=== PATIENT | male | born 1960 | race Caucasian/White ===

== ENCOUNTER 2018-07-10 15:03 | Emergency (ER) | payer SELFPAY ==
[2018-07-10] MEDS ORDERED: DIPH/PERTUSS(ACELL)/TETANUS VAC/PF 0.5 ML SYR (>=10YO) IM ONE (16:52)
[2018-07-10] MEDS ORDERED: IBUPROFEN 800 MG TABLET PO ONE (16:53)
[2018-07-10] MEDS ORDERED: LIDOCAINE 1% INJ-PF (10 MG/ML) 30 ML SDV INJ ONE (18:24)
--- NOTE | 2018-07-10 18:42 | ER Document Report ---
HPI - HPI Patient complains to provider of: laceration Time Seen by Provider: 07/10/18 16:52 Pain Level: 3 Context: Patient is a 57-year-old male presents the emergency department with a laceration to the pad of his left middle finger. Patient states he was using a miter saw when he accidentally slipped and cut his finger. Patient denies any other injuries. Past medical history: Depression Medications: Celexa Allergies: None Patient is unsure of his last tetanus immunization. - CONSTITUTIONAL Constitutional: DENIES: Fever, Chills Past Medical History - General Information source: Patient - Social History Smoking Status: Never Smoker Chew tobacco use (# tins/day): No Frequency of alcohol use: None Drug Abuse: None Family History: Reviewed & Not Pertinent Patient has suicidal ideation: No Patient has homicidal ideation: No Renal/ Medical History: Denies: Hx Peritoneal Dialysis Vertical Provider Document - CONSTITUTIONAL Agree With Documented VS: Yes Notes: GENERAL: Alert, interacts well. No acute distress. HEAD: Normocephalic, atraumatic. EYES: Pupils equal, round, and reactive to light. Extraocular movements intact. ENT: Oral mucosa moist, tongue midline. NECK: Full range of motion. Supple. Trachea midline. LUNGS: Clear to auscultation bilaterally, no wheezes, rales, or rhonchi. No respiratory distress. HEART: Regular rate and rhythm. No murmur ABDOMEN: Soft, non-tender. Non-distended. Bowel sounds present in all 4 quadrants. EXTREMITIES: Moves all 4 extremities spontaneously. No edema, normal radial and dorsalis pedis pulses bilaterally. No cyanosis. BACK: no cervical, thoracic, lumbar midline tenderness. No saddle anesthesia, normal distal neurovascular exam. NEUROLOGICAL: Alert and oriented x3. Normal speech. cranial nerves II through XII grossly intact PSYCH: Normal affect, normal mood. SKIN: Warm, dry, normal turgor. U-shaped laceration noted to the anterior aspect of the distal left middle finger. Full range of motion MCP DIP and PIP. Capillary refill less than 2 seconds distal left middle finger. - INFECTION CONTROL TRAVEL OUTSIDE OF THE [place] IN LAST 30 DAYS: No Course - Re-evaluation Re-evalutation: 07/10/18 20:08 Patient's laceration was sutured with no complications. Discussed close follow- up for suture removal with the patient at length. See procedure note for details. Patient stable for discharge. - Vital Signs Vital signs: Temp Pulse Resp BP Pulse Ox 98.4 F 69 16 149/67 H 96 07/10/18 15:25 07/10/18 15:25 07/10/18 15:25 07/10/18 15:25 07/10/18 15:25 Procedures - Laceration/Wound Repair Finger Wound length (cm): 4 Wound's Depth, Shape: Superficial, Irregular, Contused tissue Laceration pre-procedure: Sterile PPE donned, Betadine prep applied, Sterile drapes applied, Shur-Clens applied Anesthetic type: 1% Lidocaine Volume Anesthetic (mLs): 5 Wound explored: Clean Irrigated w/ Saline (mLs): 500 Wound Debrided: Minimal Wound Repaired With: Sutures Suture Size/Type: 5:0, Ethilon Number of Sutures: 9 Post-procedure wound care: Sterile dressing applied, Splint applied Post-procedure NV exam normal: Yes Complications: No Hands front picture: 1 - U shaped laceratoin Discharge - Discharge Clinical Impression: Finger laceration Qualifiers: Encounter type: initial encounter Finger: middle finger Damage to nail status: without damage Foreign body presence: without foreign body Laterality: left Qualified Code(s): S61.213A - Laceration without foreign body of left middle finger without damage to nail, initial encounter Condition: Stable Disposition: HOME, SELF-CARE Instructions: Antibiotic Ointment Protection (OM), Laceration Care (OM), Tetanus Immunization Given ([facility]) Additional Instructions: Your sutures need to be removed in the next 10-14 days. Please return to the emergency room for removal, follow-up with an urgent care, or follow-up with your primary care physician. Please also return to the emergency room should the wound appear infected.
[2018-07-10 20:06] VITALS: BP 138/79
== END 2018-07-10 20:15 | disposition home or self-care (01) ==
LOC: ER 15:03
DX: S61.213A Laceration without foreign body of left middle finger without damage to nail, initial encounter (principal); W29.8XXA Contact with other powered hand tools and household machinery, initial encounter; F32.9 Major depressive disorder, single episode, unspecified; Z79.899 Other long term (current) drug therapy
CPT/HCPCS: 99282; 90471; 90715; 12004; J3490

== ENCOUNTER 2018-07-23 08:28 | Emergency (ER) | payer SELFPAY ==
[2018-07-23 08:32] VITALS: BP 144/79
--- NOTE | 2018-07-23 09:42 | ER Document Report ---
HPI - HPI Time Seen by Provider: 07/23/18 09:11 Pain Level: 0 Notes: 57-year-old male presents the emergency department for removal of 9 sutures in left middle finger placed July 12. Patient admits to some drainage from the wound. Patient states he has limited range of motion in the DIP but is otherwise able to move his finger without issue. He has been cleaning the wound regularly but has not been soaking the wound in water. Patient has not been on antibiotics. Denies any headache, fever, neck pain, chest pain, palpitations, syncope, cough, shortness of breath, wheeze, dyspnea, abdominal pain, nausea/vomiting/diarrhea, urinary retention, dysuria, hematuria, numbness/tingling, muscle paralysis/weakness, or rash. - ROS Systems Reviewed and Negative: Yes All other systems reviewed and negative - MUSCULOSKELETAL Musculoskeletal: REPORTS: Extremity pain - L middle finger Past Medical History - Social History Smoking Status: Never Smoker Frequency of alcohol use: None Drug Abuse: None Family History: Reviewed & Not Pertinent Patient has suicidal ideation: No Patient has homicidal ideation: No Renal/ Medical History: Denies: Hx Peritoneal Dialysis Psychiatric Medical History: Reports: Hx Depression - anxiety Past Surgical History: Reports: Hx Orthopedic Surgery Vertical Provider Document - CONSTITUTIONAL Agree With Documented VS: Yes Notes: PHYSICAL EXAMINATION: GENERAL: Well-appearing, well-nourished and in no acute distress. LUNGS: Breath sounds clear to auscultation bilaterally and equal. No wheezes rales or rhonchi. HEART: Regular rate and rhythm without murmurs, rubs, gallops. Musculoskeletal: Lt 3rd digit: LROM to passive/active at the DIP, but strength 5+/5. N/V intact distal. No bony tenderness. Extremities: No cyanosis, clubbing, or edema b/l. Peripheral pulses 2+. Capillary refill less than 3 seconds. NEUROLOGICAL: Normal speech, normal gait. Normal sensory, motor exams PSYCH: Normal mood, normal affect. SKIN: Lt 3rd digit: there is scant purulence noted from the wound with mild erythema. No streaks or fluctuant abscess. - INFECTION CONTROL TRAVEL OUTSIDE OF THE [place] IN LAST 30 DAYS: No Course - Re-evaluation Re-evalutation: 07/23/18 09:59 Patient is an afebrile, well-hydrated, 57-year-old male who presents emergency department for suture removal and apparent mild wound infection. Vitals are acceptable without significant tachycardia, tachypnea, or hypoxia. PE is otherwise unremarkable. Sutures removed successfully without any complications. Wound dressing was placed. Patient will be placed on Keflex and Bactrim. Recheck with your PCM this week. Consider consult with the hand specialist, Dr. Capps. Return to the ED with any other worsening/concerning symptoms. Patient is in agreement. - Vital Signs Vital signs: Temp Pulse Resp BP Pulse Ox 98.5 F 72 16 144/79 H 96 07/23/18 08:32 07/23/18 08:32 07/23/18 08:32 07/23/18 08:32 07/23/18 08:32 Discharge - Discharge Clinical Impression: Visit for suture removal, Finger infection Condition: Stable Disposition: HOME, SELF-CARE Additional Instructions: Keep the skin clean Wash with soap and water Tylenol/ibuprofen if needed Triple antibiotic ointment daily Take medication as directed Monitor for any worsening symptoms Recheck with your PCM in 3-5 days Schedule an appointment with orthopedics for further evaluation and management Return to the ED with any worsening symptoms and/or development of fever, headache, chest pain, palpitations, syncope, shortness of breath, trouble breathing, abdominal pain, n/v/d, abscess, purulent discharge, red streaks, worsening swelling, or other worsening symptoms that are concerning to you. Prescriptions: Cephalexin Monohydrate [Keflex 500 mg Capsule] 500 mg PO TID #30 capsule Sulfamethoxazole/Trimethoprim [Bactrim Ds Tablet] 1 each PO BID #20 tablet Forms: Elevated Blood Pressure Referrals: TOMI CAPPS DO [ACTIVE STAFF] - Follow up in 1 week
== END 2018-07-23 10:36 | disposition home or self-care (01) ==
LOC: ER 08:28
DX: S61.213D Laceration without foreign body of left middle finger without damage to nail, subsequent encounter (principal); L08.9 Local infection of the skin and subcutaneous tissue, unspecified; X58.XXXD Exposure to other specified factors, subsequent encounter
CPT/HCPCS: 87070; 87077; 87186; 87205; 99281